=== PATIENT | female | born 1935 | race Caucasian/White ===

== ENCOUNTER → 2019-03-04 | Outpatient (CLI) | payer MEDICARE, BC ==
--- NOTE | 2019-03-04 15:56 | BD ---
EXAMINATION TYPE: Axial Bone Density DATE OF EXAM: 03/04/2019 COMPARISON: NONE CLINICAL HISTORY: Postmenopausal female Height: 5 FT 2 IN Weight: 138 FRAX RISK QUESTIONS: 3. Menopause before 45: YES RISK FACTORS HISTORY OF: Active: YES Postmenopausal woman: TOTAL HYST BY AGE 35 MEDICATIONS: Additional Medications: PREVASTATIN, AMLODIPINE, METOPROLOL, CITALOPRAM, ASPIRIN, LORATADINE, CALCIUM , VIT E Additional History: BREAST CANCER 2000 RADIATION EXAM MEASUREMENTS: Bone mineral densitometry was performed using the [employer]. Bone mineral density as measured about the Lumbar spine is: ----- L1-L4(G/cm2): 1.119 T Score Values are as follows: ----- L2: -1.4 ----- L3: -1.1 ----- L4: 1.0 ----- L1-L4: -0.5 Bone mineral density has: INCREASED 18.0% SINCE STUDY 2009 Bone mineral density about the R hip (g/cm2): 0.667 Bone mineral density about the L hip (g/cm2): 0.754 T Score values are as follows: -----R Neck: -2.7 -----L Neck: -2.0 -----R Total: -2.5 -----L Total: -1.9 Bone mineral density has: INCREASED 1.9 % SINCE STUDY 2009 IMPRESSION: Osteoporosis (T Score less than -2.5). There is increased fracture risk and therapy is usually indicated based on age. Re-Screen 1-2 years. NOTE: T-SCORE=SD OF THE YOUNG ADULT MEAN.
--- NOTE | 2019-03-09 14:10 | MM ---
Reason for exam: screening (asymptomatic). Last mammogram was performed 1 year and 2 months ago. History: Patient is postmenopausal and history of breast cancer. Family history of breast cancer in sister at age 60 and breast cancer in sister at age 50. Lumpectomy of the left breast, 2000. Radiation therapy of the left breast, 2000. Physical Findings: A clinical breast exam by your physician is recommended on an annual basis and results should be correlated with mammographic findings. MG 3D Screening Mammo W/Cad Bilateral CC and MLO view(s) were taken. Prior study comparison: January 07, 2018, mammogram, performed at [facility]. November 14, 2016, mammogram, performed at [facility]. The breast tissue is heterogeneously dense. This may lower the sensitivity of mammography. No significant changes when compared with prior studies. ASSESSMENT: Negative, BI-RAD 1 RECOMMENDATION: Routine screening mammogram of both breasts in 1 year.
== END | disposition home or self-care (01) ==
LOC: RADBDWWP 14:57
PROVIDERS: ATTEND Internal Medicine Geriatric Medicine
DX: Z12.31 Encounter for screening mammogram for malignant neoplasm of breast (principal); M81.0 Age-related osteoporosis without current pathological fracture
CPT/HCPCS: 77063; 77067; 77080

== ENCOUNTER → 2020-06-02 | Outpatient (CLI) | payer MEDICARE, BC ==
--- NOTE | 2020-06-06 08:55 | MM ---
Reason for exam: screening (asymptomatic). Last mammogram was performed 1 year and 3 months ago. History: Patient is postmenopausal and history of breast cancer. Family history of breast cancer in sister at age 60 and breast cancer in sister at age 50. Lumpectomy of the left breast, 2000. Radiation therapy of the left breast, 2000. Took estrogen for 5 years. Physical Findings: A clinical breast exam by your physician is recommended on an annual basis and results should be correlated with mammographic findings. MG 3D Screening Mammo W/Cad Bilateral CC and MLO view(s) were taken. Prior study comparison: March 04, 2019, bilateral MG 3d screening mammo w/cad. January 07, 2018, mammogram, performed at [facility]. There are scattered fibroglandular densities. There are benign appearing vascular calcifications bilaterally. No significant changes when compared with prior studies. ASSESSMENT: Benign, BI-RAD 2 RECOMMENDATION: Routine screening mammogram of both breasts in 1 year.
== END | disposition home or self-care (01) ==
LOC: RADMAMWWP 12:30
PROVIDERS: ATTEND Internal Medicine Geriatric Medicine
DX: Z12.31 Encounter for screening mammogram for malignant neoplasm of breast (principal)
CPT/HCPCS: 77063; 77067

== ENCOUNTER → 2021-01-30 | Outpatient (CLI) | payer MEDICARE, BC ==
--- NOTE | 2021-01-31 10:31 | MM ---
Reason for exam: clinical finding. Last mammogram was performed 8 months ago. History: Patient is postmenopausal and has history of breast cancer at age 65. Family history of breast cancer in sister at age 60 and breast cancer in sister at age 50. Lumpectomy of the left breast, 2000. Radiation therapy of the left breast, 2000. Took estrogen for 5 years. Indicated problem(s): pain in the left breast. Physical Findings: Nurse did not find any significant physical abnormalities on exam. MG 3D Diag Mammo W/Cad LT CC and MLO view(s) were taken of the left breast. Prior study comparison: June 02, 2020, bilateral MG 3d screening mammo w/cad. March 04, 2019, bilateral MG 3d screening mammo w/cad. The breast tissue is heterogeneously dense. This may lower the sensitivity of mammography. Finding: There are vascular calcifications in the left breast. There is no discrete abnormality. These results were verbally communicated with the patient and result sheet given to the patient on 01/30/21. ASSESSMENT: Incomplete: need additional imaging evaluation, BI-RAD 0 RECOMMENDATION: Ultrasound of the left breast. (axilla, focal area of concern by patient)
--- NOTE | 2021-01-31 10:33 | USB ---
Reason for exam: additional evaluation requested from abnormal screening. History: Patient is postmenopausal and has history of breast cancer at age 65. Family history of breast cancer in sister at age 60 and breast cancer in sister at age 50. Lumpectomy of the left breast, 2000. Radiation therapy of the left breast, 2000. Took estrogen for 5 years. US Breast Limited LT Left limited breast ultrasound including focal area of concern, retroareolar and axilla demonstrates a 1.1 x 1.0 x 0.7cm lymph node at medial axilla and a 0.7 x 0.6 x 0.4cm lymph node at medial axilla. 3.3mm cortex mildly thickened, probably benign. Follow up left axillary ultrasound in 3 months. These results were verbally communicated with the patient and result sheet given to the patient on 01/30/21. ASSESSMENT: Probably benign, BI-RAD 3 RECOMMENDATION: Ultrasound of the left breast in 3 months.
== END | disposition home or self-care (01) ==
LOC: RADMAMWWP 12:53
PROVIDERS: ATTEND Internal Medicine Geriatric Medicine
DX: R92.1 Mammographic calcification found on diagnostic imaging of breast (principal); N64.59 Other signs and symptoms in breast; Z78.0 Asymptomatic menopausal state; Z85.3 Personal history of malignant neoplasm of breast; Z80.3 Family history of malignant neoplasm of breast
CPT/HCPCS: 77065; 76642; G0279; 77061

== ENCOUNTER → 2021-06-23 | Outpatient (CLI) | payer MEDICARE, BC ==
--- NOTE | 2021-06-23 09:39 | MM ---
Reason for exam: additional evaluation requested from prior study. Last mammogram was performed 5 months ago. History: Patient is postmenopausal and has history of breast cancer at age 65. Family history of breast cancer in sister at age 60 and breast cancer in sister at age 50. Lumpectomy of the left breast, 2000. Radiation therapy of the left breast, 2000. Took estrogen for 5 years. Physical Findings: Nurse Summary: 0.5-1cm nodule in the left breast at 1 o'clock (nurse db). MG 3D Diag Mammo W/Cad NHAN Bilateral CC and MLO view(s) were taken. Prior study comparison: January 30, 2021, left breast MG 3d diag mammo w/cad LT. June 02, 2020, bilateral MG 3d screening mammo w/cad. The breast tissue is heterogeneously dense. This may lower the sensitivity of mammography. Benign appearing bilateral calcifications. These results were verbally communicated with the patient and result sheet given to the patient on 06/23/21. ASSESSMENT: Incomplete: need additional imaging evaluation, BI-RAD 0 RECOMMENDATION: Ultrasound of the left breast.
--- NOTE | 2021-06-23 09:42 | USB ---
Reason for exam: additional evaluation requested from abnormal screening. History: Patient is postmenopausal and has history of breast cancer at age 65. Family history of breast cancer in sister at age 60 and breast cancer in sister at age 50. Lumpectomy of the left breast, 2000. Radiation therapy of the left breast, 2000. Took estrogen for 5 years. US Breast Limited LT Left limited breast ultrasound including focal area of concern, retroareolar and axilla demonstrates a 1.0 x 0.8 x 0.6cm known lymph node at the axilla. These results were verbally communicated with the patient and result sheet given to the patient on 06/23/21. ASSESSMENT: Benign, BI-RAD 2 RECOMMENDATION: Routine screening mammogram of both breasts in 1 year.
== END | disposition home or self-care (01) ==
LOC: RADMAMWWP 07:43
PROVIDERS: ATTEND Internal Medicine Geriatric Medicine
DX: R92.1 Mammographic calcification found on diagnostic imaging of breast (principal); Z85.3 Personal history of malignant neoplasm of breast; Z80.3 Family history of malignant neoplasm of breast
CPT/HCPCS: 77066; 76642; G0279; 77062

== ENCOUNTER → 2022-10-12 | Outpatient (CLI) | payer MEDICARE ==
--- NOTE | 2022-10-15 06:47 | BD ---
EXAMINATION TYPE: Axial Bone Density DATE OF EXAM: 10/12/2022 COMPARISON: 03/04/2019 CLINICAL HISTORY: 87 years year old Female. ICD-10 CODE: M81.0 OSTEOPOROSIS Height: 137.5 Weight: 61" FRAX RISK QUESTIONS: Alcohol (3 or more units per day): NO Family History (Parent hip fracture): NO Glucocorticoids (More than 3mos): NO (Ex: prednisone, prednisolone, methylprednisolone, dexamethasone, and hydrocortisone). History of Fracture in Adulthood: NO Secondary Osteoporosis: 1. Type 1 Diabetes: NO 2. Hyperthyroidism: NO 3. Menopause before 45: YES 4. Malnutrition: NO 5. Chronic liver disease: NO Rheumatoid Arthritis: NO Current Tobacco Use: NO RISK FACTORS HISTORY OF: Hip Fracture (Right/Left): NO Spine Fracture: NO History of Wrist Fracture: NO Surgery to Spine/Hip(right/left)/Wrist (right/left): NO Family History of Osteoporosis: NO Active: YES Diet low in dairy products/other sources of calcium: YES Postmenopausal woman: YES Lost more than 2 inches in height since high school: YES Frequent falls: NO Poor Health: NO Hyperparathyroidism: NO Adrenal Insufficiency: NO MEDICATIONS: Prednisone or other steroids: NO Thyroid Medications: NO Osteoporosis Medications: NO Additional Medications: AMLODIPINE, METOPROLOL, CALCIUM, VITAMIN D, LORATADINE, CITALOPRAM, PRAVASTAT IN, ASPIRIN Additional History: BREAST CANCER IN 2000 EXAM MEASUREMENTS: Bone mineral densitometry was performed using the [employer] System. Bone mineral density as measured about the Lumbar spine is: ----- L1-L4(G/cm2): 1.115 T Score Values are as follows: ----- L1: -1.5 ----- L2: -1.3 ----- L3: -0.4 ----- L4: 0.6 ----- L1-L4: -0.5 Bone mineral density has: DECREASED -0.4% since study of: 03/04/2019 Bone mineral density about the R hip (g/cm2): 0.657 Bone mineral density about the L hip (g/cm2): 0.667 T Score values are as follows: -----R Neck: -2.7 -----L Neck: -2.7 -----R Total: -2.8 -----L Total: -2.6 Bone mineral density has: DECREASED -8.5% since study of: 03/04/2019 FRAX%s: The graph provided illustrates a 17.6% chance for a major osteoporotic fx and a 6.7% chance f or the hips probability for fx in 10 years time. IMPRESSION: Osteoporosis (T Score less than -2.5). There is increased fracture risk and therapy is usually indicated based on age. Re-Screen 1-2 years. NOTE: T-SCORE=SD OF THE YOUNG ADULT MEAN.
--- NOTE | 2022-10-15 11:16 | MM ---
Reason for Exam: Screening (asymptomatic). Last mammogram was performed 1 year(s) and 3 month(s) ago. Patient History: Menarche at age 10. First Full-Term at age 15. Left ovary removed at age 35. Right ovary removed at age 35. Hysterectomy at age 35. Postmenopausal. Breast cancer, left, age 65. Estrogen for 5 years until age 68. 2000, Lumpectomy on the Left side. 2000, Radiation Therapy on the left side. Sister had breast cancer, age 60. Sister had breast cancer, age 50. Prior Study Comparison: 06/02/2020 Bilateral Screening Mammogram, [facility]. 01/30/2021 Left Diagnostic Mammogram, [facility]. 06/23/2021 Bilateral Diagnostic Mammogram, [facility]. Tissue Density: There are scattered fibroglandular densities. Findings: Analyzed By CAD. Benign appearing vascular calcification is redemonstrated bilaterally. There is no suspicious new group of microcalcifications or new suspicious mass in either breast. Overall Assessment: Benign, BI-RAD 2 Management: Screening Mammogram of both breasts in 1 year. A clinical breast exam by your physician is recommended on an annual basis and results should be correlated with mammographic findings. Electronically signed and approved by: Chidi Patel M.D.
== END | disposition home or self-care (01) ==
LOC: RADBDWWP 15:07
PROVIDERS: ATTEND Internal Medicine Geriatric Medicine
DX: Z12.31 Encounter for screening mammogram for malignant neoplasm of breast (principal); M81.0 Age-related osteoporosis without current pathological fracture; Z78.0 Asymptomatic menopausal state; Z80.3 Family history of malignant neoplasm of breast; Z85.3 Personal history of malignant neoplasm of breast
CPT/HCPCS: 77063; 77067; 77080